=== PATIENT | female | born 1945 | race Caucasian/White ===

== ENCOUNTER 2021-06-27 09:24 | Outpatient (CLI) | payer MEDICARE, OTHER, SELFPAY ==
[2021-06-27 09:34] VITALS: BMI 19.8
[2021-06-27 09:55] VITALS: BP 143/80; PULSE 89; RESP 18; TEMP 36.7; O2SAT 99
[2021-06-27 10:25] VITALS: BP 152/75; PULSE 66; RESP 16; TEMP 36.7; O2SAT 99
[2021-06-27 11:24] VITALS: BP 149/78; PULSE 67; RESP 17; TEMP 36.6; O2SAT 97
== END 2021-06-27 09:25 | disposition home or self-care (01) ==
LOC: OPS 09:32
PROVIDERS: PCP Family Medicine; Visit Provider Family Medicine
DX: U07.1 COVID-19 (principal)
CPT/HCPCS: 96365

== ENCOUNTER → 2021-08-21 08:57 | Outpatient (BNVA) | payer MEDICARE, OTHER, SELFPAY | PROVIDERS: PCP Family Medicine; Visit Provider Nurse Practitioner Family | DX: I73.9 Peripheral vascular disease, unspecified (principal); I10 Essential (primary) hypertension; E78.5 Hyperlipidemia, unspecified; I65.29 Occlusion and stenosis of unspecified carotid artery | CPT/HCPCS: 99214 ==

== ENCOUNTER 2021-08-22 08:16 | Outpatient (CLI) | payer MEDICARE, OTHER, SELFPAY ==
--- NOTE | 2021-08-22 08:31 | USCV_ITS ---
Lucinda Aguila Age: 76 Gender: F : 1945 Exam Date: 08/22/2021 08:42 Ordering Phys: Phillip Zeng MD Technologist: Exam Location: [facility] [place] Indication: aaa HISTORY: Diameter (cm) AP x Transverse x Length Velocity (cm/s) Waveform Prox Aorta: 2.08 x 2.18 x 61.40 Biphasic Mid Aorta: 1.81 x 2.01 x 55.50 Biphasic Distal Aorta: 3.22 x 3.34 x 53.00 Biphasic Right Iliac Prox: 1.42 x 1.70 x 43.80 Biphasic Left Iliac Prox: 1.38 x 1.37 x 36.20 Biphasic Stent Prox Landing x x Aneurysmal Sac Max x x Lt Lat Sac Dim Rt Lat Sac Dim Stent Dist Landing x x Right Iliac Stent x x Left Iliac Stent x x Right Renal Art Left Renal Art FINDINGS: aaa CONCLUSIONS Slightly aneurysmal distal Abdominal aorta measuring 3.2 x 3.3cm. This is slightly more prominent compared to 2019. Moderate atheromatous disease. Normal common iliac arteries Kang Reveles MD (Electronically Signed) Final Date: 22 August 2021 11:33 S
== END 2021-08-22 08:17 | disposition home or self-care (01) ==
LOC: RAD 08:19
PROVIDERS: PCP Family Medicine; Visit Provider Family Medicine
DX: I71.4 Abdominal aortic aneurysm, without rupture (principal)
CPT/HCPCS: 93978

== ENCOUNTER → 2021-10-17 09:16 | Outpatient (BNVA) | payer MEDICARE, OTHER, SELFPAY | PROVIDERS: PCP Family Medicine; Visit Provider Nurse Practitioner Family | DX: R41.0 Disorientation, unspecified (principal); Z91.81 History of falling | CPT/HCPCS: 81000; 87086 ==

== ENCOUNTER → 2021-10-19 08:44 | Outpatient (BNVA) | payer MEDICARE, OTHER, SELFPAY | PROVIDERS: PCP Family Medicine; Visit Provider Internal Medicine Cardiovascular Disease | DX: I65.29 Occlusion and stenosis of unspecified carotid artery (principal); I10 Essential (primary) hypertension; I73.9 Peripheral vascular disease, unspecified; Z95.0 Presence of cardiac pacemaker; F17.210 Nicotine dependence, cigarettes, uncomplicated | CPT/HCPCS: 99214 ==

== ENCOUNTER 2021-11-23 09:57 | Outpatient (CLI) | payer MEDICARE, OTHER, SELFPAY ==
--- NOTE | 2021-11-23 10:09 | USCV_ITS ---
Lucinda Aguila Age: 76 Gender: F : 1945 Exam Date: 11/23/2021 10:15 Ordering Phys: Phillip Zeng MD Technologist: ROCIO [place]am Location[place] [facility] [place] [facility] [place]ication: syncope Risk Factors: Previous Vascular Surgery: Right Brachial BP: / Left Brachial BP: / Right Left Velocity (cm/s) Spectral Plaque Velocity (cm/s) Spectral Plaque Syst/Diast Broadening Syst/Diast Broadening 62.90/ 14.00 Prox CCA 61.80 / 15.60 48.20/ 11.70 Mid CCA 55.10 / 13.40 69.10/ 21.00 Distal CCA 76.70 / 14.90 113.10/34.20 Prox ICA 79.60 / 22.40 59.60/ 17.60 Mid ICA 61.40 / 24.10 45.10/ 19.00 Distal ICA 52.50 / 18.50 140.70 ECA 112.30 1.64 ICA/CCA 1.04 Antegrade Vertebral Antegrade 26.30/ 7.90 cm/s 41.00/ 16.20 cm/s Tri Subclavian Tri 194.3 0 FINDINGS Comparison:. 10/07/18. No significant elevation of systolic or diastolic velocities. Diffuse bilateral scattered calcified plaque and intimal thickening throughout the common carotid arteries and extending through the bifurcation. Progression of intimal thickening since the prior exam. Antegrade vertebral arteries. CONCLUSIONS Bilateral ICA stenosis less than 50%. Mild progression of diffuse intimal thickening and plaque since the prior exam. Dr. Nithya Hussein DO (Electronically Signed) Final Date: 23 November 2021 11:33 S
== END 2021-11-23 09:58 | disposition home or self-care (01) ==
PROVIDERS: PCP Family Medicine; Visit Provider Family Medicine
DX: I65.23 Occlusion and stenosis of bilateral carotid arteries (principal); R55 Syncope and collapse
CPT/HCPCS: 93880

== ENCOUNTER 2021-12-13 08:33 | Outpatient (CLI) | payer MEDICARE, OTHER, SELFPAY ==
--- NOTE | 2021-12-13 08:30 | CT_ITS ---
WS: [id number] CTA NECK TECHNIQUE: Contrast enhanced CTA of the neck with coronal and sagittal reformatted images and maximum intensity projection (MIP) images. NASCET criteria utilized. CLINICAL INFORMATION: Carotid stenosis/aneurysm COMPARISON: CTA 9 25,019 DLP: 352.[address] scans at [facility] use at least one of these dose optimization techniques: automated e xposure control; mA and/or kV adjustment per patient size (includes targeted exams where dose is matc hed to clinical indication); or iterative reconstruction. 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 Dedicated CTA head not performed today. This can be followed up with CTA of head 12 months. RIGHT: RIGHT common carotid artery is patent. Mild stenosis RIGHT proximal ICA with less than 50% michael nosis. ICA is patent to the skull base. LEFT: LEFT common carotid artery is patent. Mild atheromatous plaque LEFT carotid bulb extending into the ICA. No significant LEFT ICA stenosis. LEFT ICA is patent to the skull base. LEFT dominant vertebral artery. Smaller but patent RIGHT vertebral artery. Proximal basilar artery is patent. Patent RIGHT posterior communicating artery. Intracranial contents are only partially visual ized on this CTA neck. Paranasal sinuses and mastoid air cells well aerated. Noncalcified pulmonary nodule LEFT upper lobe a nteriorly measuring 7 mm. Advanced ulcerated atheromatous disease involving the aortic arch and great vessel origins. Moderate stenosis of the proximal RIGHT subclavian artery. Mild stenosis LEFT proxim al subclavian artery. Small bilateral thyroid nodules. Chronic lacunar infarct RIGHT cerebellum. CT/CT angio neck [id number] IMPRESSION: 1. Less than 50% ICA stenosis bilaterally. 2. Advanced atheromatous disease with ulceration involving the aortic arch and great vessel origins. Mild stenosis at the LEFT subclavian artery origin. Mode rate stenosis of the RIGHT subclavian artery origin. Atheromatous disease is pr ogressed slightly compared to 2019. 3. LEFT dominant vertebral artery. Both vertebral arteries are patent. 4. Noncalcified pulmonary nodule LEFT upper lobe anteriorly measuring 7 mm Gregory ears stable since 2019 5. 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 This can be followed up with CTA head 12 months.
[2021-12-13 08:59] LABS: Blood Urea Nitrogen 12 mg/dL (8-23)
[2021-12-13] MEDS: iodixanol 320 mg/mL 100mL Btl IV (09:03)
== END 2021-12-13 08:34 | disposition home or self-care (01) ==
PROVIDERS: PCP Family Medicine; Visit Provider Internal Medicine Cardiovascular Disease
DX: I65.23 Occlusion and stenosis of bilateral carotid arteries (principal); Z01.812 Encounter for preprocedural laboratory examination; R91.1 Solitary pulmonary nodule; I70.8 Atherosclerosis of other arteries
CPT/HCPCS: 70498; 82565; 84520

== ENCOUNTER → 2022-03-15 09:30 | Outpatient (BNVA) | payer MEDICARE, OTHER, SELFPAY | PROVIDERS: PCP Family Medicine; Visit Provider Internal Medicine Cardiovascular Disease | DX: I10 Essential (primary) hypertension (principal); I65.29 Occlusion and stenosis of unspecified carotid artery; I73.9 Peripheral vascular disease, unspecified; Z95.0 Presence of cardiac pacemaker; F17.210 Nicotine dependence, cigarettes, uncomplicated | CPT/HCPCS: 93280; 99214 ==

== ENCOUNTER → 2022-05-23 13:26 | Outpatient (BNVA) | payer MEDICARE, OTHER, SELFPAY | PROVIDERS: PCP Family Medicine; Visit Provider Family Medicine | DX: I10 Essential (primary) hypertension (principal); J44.9 Chronic obstructive pulmonary disease, unspecified; F32.A Depression, unspecified; E78.5 Hyperlipidemia, unspecified; I73.9 Peripheral vascular disease, unspecified; I27.20 Pulmonary hypertension, unspecified | CPT/HCPCS: 80053; 85025 ==

== ENCOUNTER 2022-10-01 14:06 | Outpatient (CLI) | payer MEDICARE, OTHER, SELFPAY ==
--- NOTE | 2022-10-01 14:30 | CT_ITS ---
WS: [id number] CTA HEAD AND NECK TECHNIQUE: Contrast enhanced CTA of the head and neck with coronal and sagittal reformatted images an d maximum intensity projection (MIP) images. NASCET criteria utilized. CLINICAL INFORMATION: dizziness with looking up COMPARISON: CTA December 13, 2021 DLP: 476.[address] scans at [facility] use at least one of these dose optimization techniques: automated e xposure control; mA and/or kV adjustment per patient size (includes targeted exams where dose is matc hed to clinical indication); or iterative reconstruction. FINDINGS: No evidence of intracranial hemorrhage or mass effect. Ventricular system and basal cistern s are patent. Chronic lacunar infarcts in the periventricular white matter and marvin radiata. Tiny c hronic lacunar infarcts in the RIGHT cerebellum. Vascular calcification. No extra-axial fluid collect ions. Mastoid air cells are well aerated. Paranasal sinuses are well aerated. RIGHT: RIGHT common carotid artery is patent. Less than 50% RIGHT ICA stenosis. ICA is patent to the skull base. LEFT: LEFT common carotid artery is patent. Mild atheromatous plaque LEFT carotid bulb extending into the ICA. No significant LEFT ICA stenosis. LEFT ICA is patent to the skull base. INTRACRANIAL CTA: Tiny RIGHT MCA trifurcation aneurysm measuring approximately 2.5 mm appears stable. Mild intracranial atheromatous disease. LEFT dominant vertebral artery. Smaller but patent RIGHT vertebral artery. Proximal basilar artery is patent. Patent RIGHT posterior communicating artery. Advanced ulcerated atheromatous plaque involving the aortic arch and great vessel origins. Moderate s tenosis of the proximal RIGHT subclavian artery. Mild stenosis LEFT proximal subclavian artery. Small bilateral thyroid nodules. CT/CT angio headneck* [id number] IMPRESSION: 1. Less than 50% ICA stenosis bilaterally. 2. 2.5 mm RIGHT MCA trifurcation aneurysm is unchanged. 3. Advanced atheromatous disease with ulceration involving the aortic arch and great vessel origins unchanged. 4. Mild stenosis at the LEFT subclavian artery origin. Moderate stenosis of th e RIGHT subclavian artery origin. 5. LEFT dominant vertebral artery. Both vertebral arteries are patent.
[2022-10-01 14:42] LABS: Blood Urea Nitrogen 7 mg/dL (8-23)
[2022-10-01] MEDS: iohexol 350 mg/mL 500 mL Btl (per mL) IV (14:58)
== END 2022-10-01 14:07 | disposition home or self-care (01) ==
LOC: RAD 14:08
PROVIDERS: PCP Family Medicine; Visit Provider Nurse Practitioner Family
DX: I67.1 Cerebral aneurysm, nonruptured (principal); I77.1 Stricture of artery
CPT/HCPCS: 70496; 70498; 82565; 84520; 99214; Q9967

== ENCOUNTER 2022-10-27 10:17 | Emergency (ER) | payer MEDICARE, OTHER, SELFPAY ==
[2022-10-27] VITALS (8 sets, daily range): BP systolic 101–167; BP diastolic 55–93; PULSE 65–97; RESP 17–25; O2SAT 93–98; BMI 18.4
--- NOTE | 2022-10-27 10:29 | XRR_ITS ---
PROCEDURE INFORMATION: Exam: XR Chest Exam date and time: 10/27/2022 10:36 AM Age: 77 years old Clinical indication: Dyspnea; Additional info: Dyspnea/cough TECHNIQUE: Imaging protocol: Radiologic exam of the chest. Views: 1 view. COMPARISON: CT chest abdomen w con* 03/01/2019 9:46 AM FINDINGS: Tubes, catheters and devices: There is a dual-lead AICD with leads positioned in the right atrium and right ventricle. Lungs: There is calcified granuloma in the left lower lobe. There is no consolidation. Pleural spaces: There is no pleural effusion or pneumothorax. Heart/Mediastinum: Cardiomediastinal contours are unremarkable. Bones/joints: Upper lumbar scoliosis is partially imaged. Soft tissues: There is a small posterior left diaphragmatic hernia visible along the left hemidiaphragm which contains fat and the upper pole the left kidney (based on CT 03/01/2019). XR/XR chest 1V portable [id number] IMPRESSION: 1. No acute findings. 2. Incidental findings above.
--- NOTE | 2022-10-27 10:29 | CTR_ITS ---
PROCEDURE INFORMATION: Exam: CT Head Without Contrast Exam date and time: 10/27/2022 10:49 AM Age: 77 years old Clinical indication: Syncope and collapse; Additional info: Syncope/hx intracranial anuerysm TECHNIQUE: Imaging protocol: Computed tomography of the head without contrast. Radiation optimization: All CT scans at this facility use at least one of these dose optimization techniques: automated exposure control; mA and/or kV adjustment per patient size (includes targeted exams where dose is matched to clinical indication); or iterative reconstruction. REPORTING DATA: Count of CT and Cardiac NM exams in prior 12 months: This patient has received 2 known CTs and 0 known cardiac nuclear medicine studies in the 12 months prior to the current study. COMPARISON: CT angio headneck* [id number] 10/01/2022 2:46 PM RADIATION DOSE METRICS: Total DLP (mGy-cm): 982.74 FINDINGS: Brain: There is diffuse cerebral atrophy and chronic microvascular white matter disease. There are focal hypodensities in the bilateral basal ganglia and left thalamus consistent with chronic lacunar infarcts. There is no acute intracranial hemorrhage. Cerebral ventricles: There is no significant ventricular dilation. The basal cisterns are unremarkable. Paranasal sinuses: The paranasal sinuses are clear. Mastoid air cells: The mastoid air cells are clear. Bones/joints: The calvarium is intact. Soft tissues: The visible extracranial soft tissues are unremarkable. CT/CT head wo con* [id number] IMPRESSION: 1. No acute intracranial abnormality. 2. Chronic lacunar infarcts in the bilateral basal ganglia and left thalamus.
--- NOTE | 2022-10-27 10:29 | ECG_ITS ---
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 Measurements Intervals [place] Rate: 73 P: 86 VT: 133 QRS: -21 QRSD: 101 T: 70 QT: 390 QTc: 432 Interpretive Statements SINUS RHYTHM SEPTAL MYOCARDIAL INFARCTION , PROBABLY OLD [40+ ms Q WAVE IN V1/V2] Compared to ECG 10/02/2018 14:05:17 Atrial-paced complex(es) or rhythm no longer present Myocardial infarct finding still present Electronically Signed On 10-27-2022 19:26:04 CDT by Christopher Garrett M.D. [id number]
--- NOTE | 2022-10-27 10:40 | W.ED.DIZZY ---
HPI - Dizziness General: Chief Complaint: Dizziness Stated Complaint: passed out/ Dizzy/ confusion Time Seen by Provider: 10/27/22 10:23 Source: patient Mode of arrival: ambulatory History of Present Illness: HPI Narrative: 77-year-old female presents emergency room stating she had a syncopal episode. She was taking some pictures she felt dizzy lightheaded. She has had a history of passing out in the past. When she arrived here she denies any symptoms she is actually quite upset that here she did not want to call only came to the insistence of her daughters. She denies chest pain or shortness of breath. No fever sweats or chills. She did not strike her head she does recall having a syncopal episode states that this similar to the past. MD elicited complaint: dizziness and lightheadedness Onset (ago): minute(s) Timing: sudden onset Description: lightheadedness and off-balance Exacerbating factors: nothing Relieving factors: nothing Associated symptoms: Denies abnormal vaginal bleeding, change in hearing, chest pain, chills, cough, diaphoresis, ear discharge, ear pressure, fevers/chills, headache(s), malaise, nausea, nasal congestion, palpitations, rash, short of breath, syncope, tinnitus, vomiting or weakness Associated neuro symptoms: Deny confusion, difficulty speaking, dysphagia, diplopia, extremity weakness, facial numbness, facial weakness, gait changes, numbness in extremities or visual changes Review of Systems Const: Denies: fever(s), chills, fatigue, malaise or diaphoresis ENMT: Denies: ear discharge, change in hearing, tinnitus or nasal congestion Card: Denies: chest pain, palpitations or syncope Resp: Denies: dyspnea, productive cough or non-productive cough GI: Denies: abdominal pain, nausea, vomiting or dysphagia : Denies: flank pain, difficulty voiding, dysuria, urinary frequency or urinary urgency Skin/Breast: Denies: rash or pruritus Neuro: Denies: headache(s), numbness in extremities or confusion PFS ED PFSH: Medical History Carotid stenosis COPD (chronic obstructive pulmonary disease) Depression Dyslipidemia HTN (hypertension) Pulmonary HTN PVD (peripheral vascular disease) SSS (sick sinus syndrome) Stenosis of right subclavian artery moderate Tobacco abuse Surgical History S/P carotid endarterectomy Status post placement of cardiac pacemaker Family History Father CAD (coronary artery disease) Brother CAD (coronary artery disease) Mother Cancer Social History Smoking and tobacco status: never smoked Alcohol intake: never Substance/Drug Use: never Marital status: Physical Exam Const: GENERAL APPEARANCE: cooperative and comfortable ORIENTATION/CONSCIOUSNESS: Yes awake, Yes oriented to person, Yes oriented to place and Yes oriented to time HENMT: COMMON NORMALS: normocephalic, atraumatic and hearing grossly normal bilaterally HEAD & SCALP: normocephalic and atraumatic Resp: COMMON NORMALS: normal respiratory effort, No retractions, No use of accessory muscles and clear to auscultation bilaterally AUSCULTATION: clear to auscultation bilaterally Cardio: COMMON NORMALS: regular rate, regular rhythm and No murmurs present (Cardio) RATE: regular rate RHYTHM: regular rhythm GI: COMMON NORMALS: Soft to palpation and No hepatosplenomegaly present AUSCULTATION: Yes normoactive bowel sounds PALPATION: Yes Soft to palpation, No Tenderness to palpation present (GI), No Guarding due to palpation present (GI) and Yes No hepatosplenomegaly present Extremity: COMMON NORMALS: normal to inspection, capillary refill normal, no clubbing, cyanosis or edema, no calf tenderness and no pedal edema Neuro: SENSORIUM/ORIENTATION: Yes oriented to person, Yes oriented to place and Yes oriented to time Skin: COMMON NORMALS: no rashes or lesions noted GENERAL SKIN EXAM: no rashes or lesions noted Course Vital Signs: Vital signs: Vital Signs Pulse Rate 65 10/27/22 14:54 Respiratory Rate 24 H 10/27/22 13:50 Blood Pressure 156/93 10/27/22 14:54 Pulse Oximetry 98 10/27/22 14:54 Oxygen Delivery Me thod Room Air 10/27/22 10:26 MDM - Dizziness Medical Decision Making EKG and cardiac enzymes unremarkable cardiac pacemaker interrogated no significant events. Patient does have an incidental UTI is a large number of red blood cells so CT of the urinary tract system was done which was unremarkable. We will discharge patient home have her follow-up with her primary care doctor we will set up for an outpatient echocardiogram. Discussed with the patient the results that she was quite anxious to leave. Had considered observation however she has no interest in staying. She should follow-up with her primary care doctor after completing the course of antibiotics to recheck her urine if it is persistent blood she may need urologic work-up. Additionally follow-up after the echocardiogram is completed. Medical Records I reviewed the patient's medical records. Lab Data I reviewed the patient's lab results. 10/27/22 11:25 10/27/22 11:25 Radiology Impressions Chest X-Ray 10/27/22 10:29 IMPRESSION: 1. No acute findings. 2. Incidental findings above. Head CT 10/27/22 10:29 IMPRESSION: 1. No acute intracranial abnormality. 2. Chronic lacunar infarcts in the bilateral basal ganglia and left thalamus. Abdomen/Pelvis CT 10/27/22 11:56 IMPRESSION: 1. No obstructive uropathy. No stones. Consider nonemergent CT urography for more complete assessment of hematuria. 2. 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 3. Cholelithiasis with distended gallbladder lumen and no other sign of acute cholecystitis. 4. 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 Follow-up imaging in 1 year is recommended. 5. Incidental findings above. COMMENTS: Consistent with the [employer]'s Incidental Findings Committee white paper (J Am Ema Radiol 2018): Any incidental renal lesion less than 1 cm or classified as too small to characterize, or any incidental cystic renal lesion characterized as simple-appearing, is likely benign. No follow-up imaging is recommended for these lesions per consensus recommendations based on imaging criteria. Laboratory Results WBC 11.0 10^3/uL (4.0-10.0) H 10/27/22 11:25 RBC 5.21 10^6/uL (4.1-5.3) 10/27/22 11:25 Hgb 15.6 g/dL (11.5-15.3) H 10/27/22 11:25 Hct 47.7 % (37.0-47.0) H 10/27/22 11:25 MCV 91.6 fl (81-99) 10/27/22 11:25 MCH 29.9 pg (28.0-34.0) 10/27/22 11:25 MCHC 32.7 g/dL (30.0-36.0) 10/27/22 11:25 RDW 12.2 % (12.1-15.1) 10/27/22 11:25 Plt Count 277 10^3/cmm (130-400) 10/27/22 11:25 MPV 9.0 fL (7.4-10.4) 10/27/22 11:25 Neut % (Auto) 79.7 % 10/27/22 11:25 Lymph % (Auto) 11.7 % 10/27/22 11:25 [place] % (Auto) 5.4 % 10/27/22 11:25 Eos % (Auto) 2.0 % 10/27/22 11:25 Baso % (Auto) 0.6 % 10/27/22 11:25 Neut # (Auto) 8.72 10^3/uL (1.8-7.7) H 10/27/22 11:25 Lymph # (Auto) 1.3 10^3/uL (0.8-4.8) 10/27/22 11:25 [place] # (Auto) 0.6 10^3/uL (0.2-0.9) 10/27/22 11:25 Eos # (Auto) 0.2 10^3/uL (0.0-0.8) 10/27/22 11:25 Baso # (Auto) 0.1 10^3/uL (0.0-0.1) 10/27/22 11:25 Nucleated RBC % (auto) 0 % 10/27/22 11:25 Nucleated RBCs # 0.0 /100WBC 10/27/22 11:25 Sodium 135 mmol/L (136-145) L 10/27/22 11:25 Potassium 4.4 mmol/L (3.5-5.1) 10/27/22 11:25 Chloride 98 mmol/L (98-107) 10/27/22 11:25 Carbon Dioxide 27 mmol/L (22-29) 10/27/22 11:25 Anion Gap 14.4 (5-19) 10/27/22 11:25 BUN 9 mg/dL (8-23) 10/27/22 11:25 Creatinine 1.0 mg/dL (0.5-0.9) H 10/27/22 11:25 GFR Calculation Not Reportable 10/27/22 11:25 Glucose 114 mg/dL (65-115) 10/27/22 11:25 Calculated Osmolality 280 mOsm/kg (285-295) L 10/27/22 11:25 Calcium 9.4 mg/dL (8.5-10.5) 10/27/22 11:25 Total Bilirubin 0.4 mg/dL (0.15-1.2) 10/27/22 11:25 AST 15 U/L (0-32) 10/27/22 11:25 ALT 7 U/L (0-33) 10/27/22 11:25 Alkaline Phosphatase 82 U/L (35-105) 10/27/22 11:25 Troponin T Baseline 11 ng/L (0-10) H 10/27/22 11:25 Troponin T 120 Minute 9.48 ng/L (0-10) 10/27/22 13:44 Delta Troponin T -1.52 ABS# (0-10) L 10/27/22 13:44 Total Protein 7.2 g/dL (6.6-8.7) 10/27/22 11:25 Albumin 4.1 g/dL (3.5-5.2) 10/27/22 11:25 Globulin 3.1 g/dL (1.3-4.6) 10/27/22 11:25 Urine Color [place] (Yellow) 10/27/22 11:17 Urine Appearance Cloudy (CLEAR) A 10/27/22 11:17 Urine pH 6 (5-7) 10/27/22 11:17 Ur Specific [place] 1.020 (1.005-1.030) 10/27/22 11:17 Urine Protein 1+ (Negative) H 10/27/22 11:17 Urine Glucose (UA) Norm (Normal) 10/27/22 11:17 Urine Ketones 1+ (Negative) H 10/27/22 11:17 Urine Blood 3+ (Negative) H 10/27/22 11:17 Urine Nitrate Negative (Negative) 10/27/22 11:17 Urine Bilirubin 1+ (Negative) H 10/27/22 11:17 Urine Urobilinogen 1 mg/dL (Negative) H 10/27/22 11:17 Ur Leukocyte Esterase 1+ (Negative) H 10/27/22 11:17 Urine RBC Too numerous to cnt /hpf (0-2) H 10/27/22 11:17 Urine WBC 10-15 /hpf (0-5) H 10/27/22 11:17 Ur Squamous Epith Cells 0-4 /hpf (0-5) H 10/27/22 11:17 Amorphous Sediment Not Reportable 10/27/22 11:17 Urine Bacteria 1+ /hpf (NONE) H 10/27/22 11:17 Discharge Plan Discharge Patient Disposition: Home Clinical Impression: Syncope, Cystitis Condition: Stable Prescriptions: New Macrobid 100 mg capsule 100 mg PO BID 7 Days Qty: 14 0RF Rx Instructions: must administer with a meal/food No Action naproxen sodium [Aleve] 220 mg tablet 220 mg PO BID PRN (Reason: Pain) escitalopram oxalate [Lexapro] 20 mg tablet 20 mg PO DAILY Qty: 30 12RF albuterol sulfate [ProAir HFA] 90 mcg/actuation HFA aerosol inhaler 2 puff inhalation Q4H PRN (Reason: Shortness Of Breath) alprazolam 0.25 mg tablet 0.25 mg PO BID PRN (Reason: anxiety) Qty: 60 3RF amlodipine 5 mg tablet 5 mg PO DAILY trazodone 100 mg tablet 100 mg PO BEDTIME Discharge Orders: Discharge ED (Routine); Ordered 10/27/22 Ordered By: Augusto Rudd Referrals: Phillip Zeng MD [Primary Care Provider] - Discharge Diet: Usual diet Discharge Activity: Resume usual activity Patient Instructions: Opioid Safety, Pain Management Activity Restrictions/Additional Instructions: You are seen today after syncopal episode. Your cardiac enzymes normal he did have a bladder infection for which you were given a prescription for oral antibiotics. We will set you up for an outpatient echocardiogram for worsening change symptoms return to the emergency room Coding Level of Care Code ED Critical Care Registered Nurse for Bruce Montaño
[2022-10-27 11:35] LABS: Basophils # 0.1 10^3/uL (0.0-0.1); Basophils % 0.6 %; Eosinophils # 0.2 10^3/uL (0.0-0.8); Hematocrit 47.7 % (37.0-47.0); Hemoglobin 15.6 g/dL (11.5-15.3); Lymphocytes # 1.3 10^3/uL (0.8-4.8); Lymphocytes % 11.7 %; Mean Corpuscular HGB Conc 32.7 g/dL (30.0-36.0); Mean Corpuscular Hemoglobin 29.9 pg (28.0-34.0); Mean Corpuscular Volume 91.6 fl (81-99); Monocytes # 0.6 10^3/uL (0.2-0.9); Monocytes % 5.4 %; Neutrophils # 8.72 10^3/uL (1.8-7.7); Neutrophils % 79.7 %; Nucleated Red Blood Cells % 0 %; Platelet Count 277 10^3/cmm (130-400); Red Blood Count 5.21 10^6/uL (4.1-5.3); Red Cell Distribution Width 12.2 % (12.1-15.1)
[2022-10-27 11:45] LABS: Add Urine Culture? Yes; Add Urine Microscopic? YES; Bacteria Urine 1+ /hpf; Bilirubin Urine 1+ (Negative); Blood Urine 3+ (Negative); Glucose Urine UA Norm (Normal); Ketones Urine 1+ (Negative); Leukocyte Esterase Urine 1+ (Negative); Nitrate Urine Negative (Negative); Protein Urine 1+ (Negative); RBC Urine TOO NUMEROUS TO CNT /hpf (0-2); Squamous Epithelial Cell Urine 0-4 /hpf (0-5); Urine Appearance Cloudy (CLEAR); Urine Color Amber (Yellow); Urobilinogen Urine 1 mg/dL (Negative); pH Urine 6 (5-7)
[2022-10-27 11:55] LABS: Troponin(5th) Baseline 11 ng/L (0-10)
--- NOTE | 2022-10-27 11:56 | CTR_ITS ---
PROCEDURE INFORMATION: Exam: CT Abdomen And Pelvis Without Contrast Exam date and time: 10/27/2022 12:13 PM Age: 77 years old Clinical indication: Other: Hematuria; Additional info: Hematuria, flank pain TECHNIQUE: Imaging protocol: Computed tomography of the abdomen and pelvis without contrast. Radiation optimization: All CT scans at this facility use at least one of these dose optimization techniques: automated exposure control; mA and/or kV adjustment per patient size (includes targeted exams where dose is matched to clinical indication); or iterative reconstruction. REPORTING DATA: Count of CT and Cardiac NM exams in prior 12 months: This patient has received 2 known CTs and 0 known cardiac nuclear medicine studies in the 12 months prior to the current study. COMPARISON: CT chest abdomen w con* 03/01/2019 9:46 AM RADIATION DOSE METRICS: Total DLP (mGy-cm): 274.38 FINDINGS: Lungs: There is subsegmental atelectasis in the lung bases. There is a benign calcified granuloma in the left lower lobe. Diaphragm: There is a small sliding-type hiatal hernia. Liver: The liver is normal. Gallbladder and bile ducts: Cholelithiasis is present. There is no sign of cholecystitis. No gallbladder wall thickening or edema. The lumen is distended. There is ectasia of the common bile duct and central intrahepatic ducts. Pancreas: The pancreas is unremarkable. Spleen: Splenic size is normal. There are scattered calcifications consistent with healed granulomas. Adrenal glands: There is hypertrophy of the left adrenal gland. Kidneys and ureters: There are simple cysts in the left kidney. There is no hydronephrosis or stones. The right kidney and ureter are unremarkable. There are bilateral posterior diaphragmatic hernias containing mesenteric fat and upper poles of both kidneys. Stomach and bowel: The stomach is decompressed, preventing meaningful evaluation of wall thickness. The small bowel is nondilated. There is moderate sigmoid colonic diverticulosis without evidence of diverticulitis. Appendix: The appendix is normal. Intraperitoneal space: There is no free air or significant intraperitoneal free fluid. Vasculature: There is severe aortic atherosclerotic disease. There is a saccular aneurysm of the abdominal aorta measuring 4.0 x 3.5 cm located below the level of the renal arteries. There is a stent in the right common iliac artery. There is probable occlusion of the right external iliac artery. Lymph nodes: There is no lymphadenopathy in the retroperitoneum, mesentery, pelvis or inguinal regions. Urinary bladder: The urinary bladder is unremarkable. Reproductive: The uterus is unremarkable. There is no adnexal mass or large cyst. Bones/joints: Mild broad-based convex left lumbar scoliosis. There is moderate degenerative disease in the lumbar spine. The hips are unremarkable. The pelvis is intact. There is fusion at the right SI joint. Soft tissues: The abdominal wall is intact. CT/CT kidney stone [id number] IMPRESSION: 1. No obstructive uropathy. No stones. Consider nonemergent CT urography for more complete assessment of hematuria. 2. 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 3. Cholelithiasis with distended gallbladder lumen and no other sign of acute cholecystitis. 4. 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 Follow-up imaging in 1 year is recommended. 5. Incidental findings above. COMMENTS: Consistent with the [employer]'s Incidental Findings Committee white paper (J Am Ema Radiol 2018): Any incidental renal lesion less than 1 cm or classified as too small to characterize, or any incidental cystic renal lesion characterized as simple-appearing, is likely benign. No follow-up imaging is recommended for these lesions per consensus recommendations based on imaging criteria.
[2022-10-27 11:58] LABS: Alanine Aminotransferase 7 U/L (0-33); Albumin Level 4.1 g/dL (3.5-5.2); Alkaline Phosphatase 82 U/L (35-105); Anion Gap 14.4 (5-19); Aspartate Amino Transferase 15 U/L (0-32); Blood Urea Nitrogen 9 mg/dL (8-23); Calcium 9.4 mg/dL (8.5-10.5); Carbon Dioxide 27 mmol/L (22-29); Chloride 98 mmol/L (98-107); Globulin 3.1 g/dL (1.3-4.6); Glucose 114 mg/dL (65-115); Osmolality Calculated 280 mOsm/kg (285-295); Potassium 4.4 mmol/L (3.5-5.1); Sodium 135 mmol/L (136-145); Total Bilirubin 0.4 mg/dL (0.15-1.2); Total Protein 7.2 g/dL (6.6-8.7)
--- NOTE | 2022-10-27 12:36 | ECG_ITS ---
[facility] Test Date: 2022-10-27 Pat Name: Lucinda Aguila Department: Room: Gender: Female Systems Mgr: : 1945 Requested By: Augusto Nelson Order Number: [id number] Reading MD: Christopher Garrett M.D. Measurements Intervals [place] Rate: 65 P: 83 MO: 148 QRS: -14 QRSD: 107 T: 70 QT: 427 QTc: 447 Interpretive Statements SINUS RHYTHM SEPTAL MYOCARDIAL INFARCTION , PROBABLY OLD [40+ ms Q WAVE IN V1/V2] Compared to ECG 10/02/2018 14:05:17 Atrial-paced complex(es) or rhythm no longer present Myocardial infarct finding still present Electronically Signed On 10-27-2022 12:37:15 CDT by Christopher Garrett M.D. [id number]
[2022-10-27 14:07] LABS: Troponin 5 2HR 9.48 ng/L (0-10)
[2022-10-27 14:12] LABS: Troponin 5 2HR Delta -1.52 ABS# (0-10)
--- NOTE | 2022-10-28 14:16 | PC.SOCIAL ---
Addendum entered by Aracelis Gregg 01/16/23 13:55: Patient had an echo scheduled - patient did attend appointment Original Note: Referral for echocardiogram faxed to centralized scheduling at this time with request to send results to Dr. Zeng.
== END 2022-10-27 14:55 | disposition home or self-care (01) ==
PROVIDERS: Emergency Provider Family Medicine; PCP Family Medicine
DX: R55 Syncope and collapse (principal); N30.90 Cystitis, unspecified without hematuria; K80.20 Calculus of gallbladder without cholecystitis without obstruction; J44.9 Chronic obstructive pulmonary disease, unspecified; I10 Essential (primary) hypertension; E78.5 Hyperlipidemia, unspecified; Z95.0 Presence of cardiac pacemaker
CPT/HCPCS: 70450; 71045; 74176; 80053; 81001; 84484; 85025; 87086; 93005; 99285

== ENCOUNTER 2022-12-05 09:04 | Outpatient (CLI) | payer MEDICARE, OTHER, SELFPAY ==
--- NOTE | 2022-12-05 09:15 | USCV_ITS ---
Lucinda Aguila Age: 77 Gender: F : 1945 Exam Date: 12/05/2022 09:31 Ordering Phys: Augusto Rudd DO Technologist: Rodger White Exam Location: [facility] [place] Indication: syncope BP: 140 / 68 HR: 64 Rhythm: Sinus Technical Quality: Adequate MEASUREMENTS (Male / Female) Normal Values 2D ECHO LVOT Diameter 2.0 cm LV Ejection Fraction MOD 2C 71.3 % LV Ejection Fraction 2C AL 70.6 % LA Diameter 3.0 cm LA Width 2.6 cm LA Height 2.7 cm RA Width 2.6 cm RA Height 3.1 cm Aorta at Sinotubular Diameter 2.1 cm IVC Diameter 1.1 cm M-MODE Aortic Annulus Diameter 2.1 cm LA Ao Ratio MM 1.4 MV E Point Septal Separation 0.3 cm DOPPLER AV Peak Velocity 107.0 cm/s LVOT Peak Velocity 105.0 cm/s AV Area Cont Eq vti 3.9 cm squared AV Area Cont Eq pk 3.1 cm squared MV Peak Velocity 89.0 cm/s MV Area PHT 2.0 cm squared Mitral E to A Ratio 0.7 MV E' Velocity 34.0 cm/s Mitral E to MV E' Ratio 9.8 Mitral E to LV E' Lateral Ratio 8.9 Mitral E to LV E' Septal Ratio 11.3 TR Peak Velocity 228.6 cm/s TR Peak Gradient 20.9 mmHg TR Mean Velocity 173.6 cm/s TR Mean Gradient 13.1 mmHg TR Velocity Time Integral 58.5 cm Right Atrial Pressure 3.0 mmHg Pulmonary Artery Systolic Pressu 23.9 mmHg PV Peak Velocity 80.3 cm/s RV Acceleration Time 0.1 s RV Ejection Time 0.3 s RV AcT/ET 0.5 FINDINGS Left Ventricle Left ventricle is normal in size. LV systolic function is normal with EF of 60 to 65%. No regional wall motion normalities are seen. Grade 1 diastolic dysfunction Right Ventricle Normal in size and function. Pacemaker lead is noted Right Atrium Normal in size. Pacemaker lead is noted Left Atrium Normal in size Mitral Valve Grossly normal. Mild mitral regurgitation. Aortic Valve Grossly normal. No significant stenosis or regurgitation. Tricuspid Valve Mild tricuspid regurgitation. Pulmonary artery systolic pressure is normal. Pulmonic Valve Not well visualized Pericardium Normal Aorta Normal in size IVC Appears to be normal CONCLUSIONS LV systolic function is normal with EF of 60 to 65% Grade 1 diastolic dysfunction Mild mitral regurgitation Mild tricuspid regurgitation Compared to prior echocardiogram from 2017, no significant changes are noted. Christopher Garrett MD (Electronically Signed) Final Date: 05 December 2022 17:17 S
== END 2022-12-05 09:05 | disposition home or self-care (01) ==
LOC: RAD 09:05
PROVIDERS: PCP Family Medicine; Visit Provider Family Medicine
DX: I50.30 Unspecified diastolic (congestive) heart failure (principal); I34.0 Nonrheumatic mitral (valve) insufficiency; I07.1 Rheumatic tricuspid insufficiency
CPT/HCPCS: 93306

== ENCOUNTER → 2023-04-01 10:37 | Outpatient (BNVA) | payer MEDICARE, OTHER, SELFPAY | PROVIDERS: PCP Family Medicine; Visit Provider Family Medicine | DX: J44.9 Chronic obstructive pulmonary disease, unspecified (principal); I27.20 Pulmonary hypertension, unspecified; I10 Essential (primary) hypertension; E78.5 Hyperlipidemia, unspecified | CPT/HCPCS: 80053; 85025 ==

== ENCOUNTER → 2023-07-16 12:57 | Outpatient (BNVA) | payer MEDICARE, OTHER, SELFPAY | PROVIDERS: PCP Family Medicine; Visit Provider Nurse Practitioner | DX: S99.921A Unspecified injury of right foot, initial encounter (principal); X58.XXXA Exposure to other specified factors, initial encounter; M19.071 Primary osteoarthritis, right ankle and foot | CPT/HCPCS: 73630 ==

== ENCOUNTER → 2023-07-24 08:46 | Outpatient (BNVA) | payer MEDICARE, OTHER, SELFPAY | PROVIDERS: PCP Family Medicine; Visit Provider Thoracic Surgery (Cardiothoracic Vascular Surgery) | DX: I96 Gangrene, not elsewhere classified (principal); L97.512 Non-pressure chronic ulcer of other part of right foot with fat layer exposed | CPT/HCPCS: 97597; 99213 ==

== ENCOUNTER → 2023-07-31 07:54 | Outpatient (BNVA) | payer MEDICARE, OTHER, SELFPAY | PROVIDERS: PCP Family Medicine; Visit Provider Thoracic Surgery (Cardiothoracic Vascular Surgery) | DX: S90.424D Blister (nonthermal), right lesser toe(s), subsequent encounter (principal); X58.XXXD Exposure to other specified factors, subsequent encounter | CPT/HCPCS: 97597 ==

== ENCOUNTER → 2023-08-05 08:45 | Outpatient (BNVA) | payer MEDICARE, OTHER, SELFPAY | PROVIDERS: PCP Family Medicine; Visit Provider Thoracic Surgery (Cardiothoracic Vascular Surgery) | DX: Z09 Encounter for follow-up examination after completed treatment for conditions other than malignant neoplasm (principal); Z87.2 Personal history of diseases of the skin and subcutaneous tissue | CPT/HCPCS: 99212; A6212 ==

== ENCOUNTER → 2023-08-07 13:45 | Outpatient (BNVA) | payer MEDICARE, OTHER, SELFPAY | PROVIDERS: PCP Family Medicine; Visit Provider Podiatrist Foot & Ankle Surgery | DX: R09.89 Other specified symptoms and signs involving the circulatory and respiratory systems (principal); M21.611 Bunion of right foot; M25.871 Other specified joint disorders, right ankle and foot; I73.9 Peripheral vascular disease, unspecified | CPT/HCPCS: 99203 ==

== ENCOUNTER → 2023-08-27 10:20 | Outpatient (BNVA) | payer MEDICARE, OTHER, SELFPAY | PROVIDERS: PCP Family Medicine; Visit Provider Family Medicine | DX: R22.2 Localized swelling, mass and lump, trunk (principal); I10 Essential (primary) hypertension; I27.20 Pulmonary hypertension, unspecified; F32.A Depression, unspecified | CPT/HCPCS: 80053; 85025 ==

== ENCOUNTER 2023-08-28 10:18 | Outpatient (CLI) | payer MEDICARE, OTHER, SELFPAY ==
--- NOTE | 2023-08-28 10:15 | USCV_ITS ---
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 Abnormal resting LUACS and TBI on the right side, suggesting moderate peripheral arterial disease. Features suggesting multisegmental disease 2. Slightly diminished resting LUCAS and TBI on the left side suggesting mild peripheral arterial disease Dr Kwame Arias MD [facility] (Electronically Signed) Final Date: 29 August 2023 16:19 S
== END 2023-08-28 10:19 | disposition home or self-care (01) ==
LOC: RAD 10:18
PROVIDERS: PCP Family Medicine; Visit Provider Podiatrist Foot & Ankle Surgery
DX: R09.89 Other specified symptoms and signs involving the circulatory and respiratory systems (principal)
CPT/HCPCS: 93923

== ENCOUNTER → 2023-10-09 11:18 | Outpatient (BNVA) | payer MEDICARE, OTHER, SELFPAY | PROVIDERS: PCP Family Medicine; Visit Provider Podiatrist Foot & Ankle Surgery | DX: I73.9 Peripheral vascular disease, unspecified (principal); R09.89 Other specified symptoms and signs involving the circulatory and respiratory systems; M21.611 Bunion of right foot; M25.871 Other specified joint disorders, right ankle and foot | CPT/HCPCS: 99213 ==

== ENCOUNTER 2023-10-10 12:20 | Outpatient (CLI) | payer MEDICARE, OTHER, SELFPAY ==
--- NOTE | 2023-10-10 12:45 | USR_ITS ---
PROCEDURE INFORMATION: Exam: US Left Non-Vascular Joint or Other Extremity Structure Exam date and time: 10/10/2023 12:44 PM Age: 78 years old Clinical indication: Mass or lump; Other: Left lower back; Additional info: Mass on back, left of lumbar spine, US of soft tissue mass left of lumbar spine TECHNIQUE: Imaging protocol: Left US joint or other nonvascular extremity structure or structures. Real-time ultrasound with image documentation. Limited study. Exam focused on the lower extremity in the region of clinical interest. COMPARISON: CT kidney stone [id number] 10/27/2022 12:13 PM FINDINGS: Soft tissues: Normal subcutaneous fat, musculature and bone is visible. No mass or fluid collection. US/US soft tissue/extremity [id number] IMPRESSION: No pathologic findings.
== END 2023-10-10 12:21 | disposition home or self-care (01) ==
LOC: RAD 12:20
PROVIDERS: PCP Family Medicine; Visit Provider Family Medicine
DX: R22.2 Localized swelling, mass and lump, trunk (principal)
CPT/HCPCS: 76882

== ENCOUNTER 2023-10-29 20:08 | Emergency (ER) | payer MEDICARE, OTHER, SELFPAY ==
[2023-10-29 20:21] VITALS: BP 150/74; PULSE 74; RESP 16; TEMP 36.5; O2SAT 96
--- NOTE | 2023-10-29 20:38 | ED_ITS ---
HPI - Extremity Problem 2 General: Chief complaint: Extremity Problem,Nontraumatic Stated complaint: Feet swelling Time Seen by Provider: 10/29/23 20:38 History of Present Illness: 78-year-old female comes in today for co ncerns of swelling in the right foot. Patient had recently stent placement in bilateral femoral arteries. Patient reports some swelling noticed after stent placement to the right foot. Patient reports minimal discomfort. Patient has strong pulses bilaterally. Patient has been on blood thinner since placement of the stents but does not recall the name. Patient appears nontoxic. Family is at bedside. Review of Systems 2 General: Reports: 10 or more systems reviewed and unremarkable except in HPI and below PFSH ED 2 PFSH: Medical History Stenosis of right subclavian artery moderate Depression COPD (chronic obstructive pulmonary disease) Carotid stenosis Pulmonary HTN SSS (sick sinus syndrome) Tobacco abuse PVD (peripheral vascular disease) HTN (hypertension) Dyslipidemia Surgical History Status post placement of cardiac pacemaker S/P carotid endarterectomy Family History Father CAD (coronary artery disease) Brother CAD (coronary artery disease) Mother Cancer Social History Smoking and tobacco/nicotine status: never used tobacco/nicotine Alcohol intake: never Substance/Drug Use: never Marital status: Physical Exam 2 Const: COMMON NORMALS: alert HENMT: COMMON NORMALS: normocephalic HEAD & SCALP: normocephalic Neck/C-Spine: COMMON NORMALS: full ROM Resp: COMMON NORMALS: normal respiratory effort and clear to auscultation bilaterally AUSCULTATION: clear to auscultation bilaterally Cardio: COMMON NORMALS: regular rate and regular rhythm RATE: regular rate RHYTHM: regular rhythm Back/Pelvis: COMMON NORMALS: thoracic and lumbar spine normal to inspection Extremity: NARRATIVE EXTREMITY EXAM: Swelling at the ankles of the right foot. Strong bilateral pedal pulses. Neuro: SENSORIUM/ORIENTATION: Yes alert Skin: COMMON NORMALS: turgor normal GENERAL SKIN EXAM: turgor normal Course 2 Vital Signs: Vital signs: Vital Signs Temperature 97.7 F 10/29/23 20:21 Pulse Rate 63 10/29/23 22:27 Respiratory Rate 16 10/29/23 22:27 Blood Pressure 151/82 10/29/23 22:27 Pulse Oximetry 98 10/29/23 22:27 Oxygen Delivery Me thod Room Air 10/29/23 20:21 MDM - Extremity (Nontraumatic) Medical Decision Making 78-year-old female comes in today for concerns of swelling to the right lower extremity. Patient in the last 2 weeks had femoral stents placed [facility]. Patient over the last 2 days noticed some increased swelling in the right foot. Patient also had some mild increase in pain. Patient appears nontoxic. Patient reports no chest pain or shortness of breath. Patient has strong pedal pulses. Differential diagnosis includes but not limited to DVT, dependent edema, stasis dermatitis, PVD. Ultrasound lower extremity noted no deep vein thrombosis. CBC and CMP is unremarkable. Believe the swelling is probably secondary to revascularization and may be some restriction within the venous system. Recommended elevation and the use of compression stockings or socks to help with the discomfort and the swelling. Recommended following up with surgeon for further investigation. Patient and family both reported understanding. Lab Data 10/29/23 20:56 10/29/23 20:56 Radiology Impressions Venous Duplex 10/29/23 20:46 IMPRESSION: No evidence of deep vein thrombosis. Laboratory Results WBC 7.44 10^3/uL (3.29-11.43) 10/29/23 20:56 RBC 4.16 10^6/uL (3.85-5.65) 10/29/23 20:56 Hgb 12.80 g/dL (11.27-16.99) 10/29/23 20:56 Hct 37.3 % (36-47) 10/29/23 20:56 MCV 89.7 fl (85-98) 10/29/23 20:56 MCH 30.8 pg (27-33) 10/29/23 20:56 MCHC 34.3 g/dL (30-55) 10/29/23 20:56 RDW 12.4 % (12.1-15.1) 10/29/23 20:56 Plt Count 259 10^3/cmm (157-399) 10/29/23 20:56 MPV 8.9 fL (7.4-10.4) 10/29/23 20:56 Neut % (Auto) 63.2 % 10/29/23 20:56 Lymph % (Auto) 20.8 % 10/29/23 20:56 Rock % (Auto) 8.2 % 10/29/23 20:56 Eos % (Auto) 6.3 % 10/29/23 20:56 Baso % (Auto) 1.1 % 10/29/23 20:56 Neut # (Auto) 4.70 10^3/uL (1.8-7.7) 10/29/23 20:56 Lymph # (Auto) 1.6 10^3/uL (0.8-4.8) 10/29/23 20:56 Rock # (Auto) 0.6 10^3/uL (0.2-0.9) 10/29/23 20:56 Eos # (Auto) 0.5 10^3/uL (0.0-0.8) 10/29/23 20:56 Baso # (Auto) 0.1 10^3/uL (0.0-0.1) 10/29/23 20:56 Nucleated RBC % (auto) 0 % 10/29/23 20:56 Nucleated RBCs # 0.0 /100WBC 10/29/23 20:56 Sodium 136 mmol/L (136-145) 10/29/23 20:56 Potassium 4.0 mmol/L (3.5-5.1) 10/29/23 20:56 Chloride 102 mmol/L (98-107) 10/29/23 20:56 Carbon Dioxide 25 mmol/L (22-29) 10/29/23 20:56 Anion Gap 13.0 (5-19) 10/29/23 20:56 BUN 7 mg/dL (8-23) L 10/29/23 20:56 Creatinine 0.7 mg/dL (0.5-0.9) 10/29/23 20:56 GFR Calculation Not Reportable 10/29/23 20:56 Glucose 107 mg/dL (65-115) 10/29/23 20:56 Calculated Osmolality 280 mOsm/kg (285-295) L 10/29/23 20:56 Calcium 8.9 mg/dL (8.5-10.5) 10/29/23 20:56 All radiology interpretation(s) finalized by discharge Discharge Plan Discharge Patient Disposition: Home Clinical Impression: Dependent edema Condition: Stable Prescriptions: No Action mupirocin 2 % ointment 1 applic topical TID 10 Days Qty: 15 0RF sulfamethoxazole-trimethoprim [Bactrim DS] 800-160 mg tablet 1 tab PO BID 7 Days Qty: 14 0RF amlodipine 5 mg tablet 5 mg PO DAILY Qty: 90 3RF escitalopram oxalate [Lexapro] 20 mg tablet 20 mg PO DAILY Qty: 30 12RF alprazolam 0.25 mg tablet 0.25 mg PO BID PRN (Reason: anxiety) Qty: 60 3RF albuterol sulfate [ProAir HFA] 90 mcg/actuation HFA aerosol inhaler 2 puff inhalation Q4H PRN (Reason: Shortness Of Breath) Qty: 8.5 1RF trazodone 100 mg tablet 100 mg PO BEDTIME Qty: 30 11RF Discharge Orders: Discharge ED (Routine); Ordered 10/29/23 Ordered By: Omar New Referrals: Phillip Zeng MD [Primary Care Provider] - Discharge Diet: Usual diet Discharge Activity: Increase activity as tolerated Patient Instructions: Edema (ED) Activity Restrictions/Additional Instructions: Try to elevate leg is much as possible. Activity as tolerated. Consider use of compression socks or stockings to help with the swelling. Discussed with your cardiovascular surgeon other options to help with the swelling. Return to ER for discoloration of the extremity, feeling of coldness to touch, or severe uncontrolled pain. Coding Level of Care Code ED Rehab Office Coordinator for Bruce Montaño
[2023-10-29 20:43] VITALS: BP 165/88; PULSE 65; RESP 16; O2SAT 98
--- NOTE | 2023-10-29 20:46 | USR_ITS ---
PROCEDURE INFORMATION: Exam: US Duplex Right Lower Extremity Veins, Limited Exam date and time: 10/29/2023 9:22 PM Age: 78 years old Clinical indication: Other: Bruising right groin S/P cardiac cath 4 days ago. Prior surgery; Surgery date: 3-7 days post-operative; Additional info: Possible dvt TECHNIQUE: Imaging protocol: Real-time duplex ultrasound of the right extremity with 2-D mejia scale, color Doppler flow and spectral waveform analysis including responses to compression and other maneuvers (when performed) with image documentation. Limited exam was focused on the right lower extremity veins. COMPARISON: CT kidney stone [id number] 10/27/2022 12:13 PM FINDINGS: Right deep veins: Unremarkable. The common femoral, femoral, proximal profunda femoral and popliteal veins, posterior tibial and peroneal veins are patent without thrombus. Normal Doppler waveforms. Normal compressibility and/or augmentation response. Superficial veins: Greater saphenous vein at the saphenofemoral junction is patent without thrombus. Soft tissues: Unremarkable. US/[place] [id number] IMPRESSION: No evidence of deep vein thrombosis.
[2023-10-29 21:13] LABS: Basophils # 0.1 10^3/uL (0.0-0.1); Basophils % 1.1 %; Eosinophils # 0.5 10^3/uL (0.0-0.8); Eosinophils % 6.3 %; Hematocrit 37.3 % (36-47); Lymphocytes # 1.6 10^3/uL (0.8-4.8); Lymphocytes % 20.8 %; Mean Corpuscular HGB Conc 34.3 g/dL (30-55); Mean Corpuscular Hemoglobin 30.8 pg (27-33); Mean Corpuscular Volume 89.7 fl (85-98); Mean Platelet Volume 8.9 fL (7.4-10.4); Monocytes # 0.6 10^3/uL (0.2-0.9); Monocytes % 8.2 %; Neutrophils % 63.2 %; Nucleated Red Blood Cells % 0 %; Platelet Count 259 10^3/cmm (157-399); Red Blood Count 4.16 10^6/uL (3.85-5.65); Red Cell Distribution Width 12.4 % (12.1-15.1); White Blood Count 7.44 10^3/uL (3.29-11.43)
[2023-10-29 21:33] LABS: Blood Urea Nitrogen 7 mg/dL (8-23); Calcium 8.9 mg/dL (8.5-10.5); Carbon Dioxide 25 mmol/L (22-29); Chloride 102 mmol/L (98-107); Creatinine Clr Calc Pharmacy 38.1535; Glucose 107 mg/dL (65-115); Osmolality Calculated 280 mOsm/kg (285-295); Sodium 136 mmol/L (136-145)
[2023-10-29 22:27] VITALS: BP 151/82; PULSE 63; RESP 16; O2SAT 98
== END 2023-10-29 23:05 | disposition home or self-care (01) ==
PROVIDERS: Emergency Provider Nurse Practitioner Family; PCP Family Medicine
DX: R60.0 Localized edema (principal); J44.9 Chronic obstructive pulmonary disease, unspecified; I10 Essential (primary) hypertension; E78.5 Hyperlipidemia, unspecified; Z95.0 Presence of cardiac pacemaker
CPT/HCPCS: 80048; 85025; 93971; 99284

== ENCOUNTER 2023-12-16 12:11 | Outpatient (CLI) | payer MEDICARE, OTHER, SELFPAY ==
--- NOTE | 2023-12-16 12:30 | USCV_ITS ---
Lucinda Aguila Age: 78 Gender: F : 1945 Exam Date: 12/16/2023 12:27 Ordering Phys: Juan Manuel Lawler NP Technologist: ROCIO Exam Location: [facility] [place] Indication: RLE SWELLING [id number] HISTORY: Lower extremity swelling. PROCEDURES: Venous duplex imaging was performed in only the right lower extremity. The following venous structures were evaluated: common femoral vein, profunda vein, proximal portion of the greater saphenous vein, superficial femoral vein, and the popliteal vein. In addition, the posterior tibial and peroneal trunk were evaluated. Serial compression, augmentation maneuvers, and spectral Doppler flow evaluation were performed. FINDINGS: No evidence of DVT seen in any vessel visualized at this time. CONCLUSIONS No evidence of right lower extremity DVT. Kang Reveles MD (Electronically Signed) Final Date: 16 December 2023 13:11 S
== END 2023-12-16 12:12 | disposition home or self-care (01) ==
LOC: RAD 12:11
PROVIDERS: PCP Family Medicine; Visit Provider Clinical Nurse Specialist Adult Health
DX: R60.0 Localized edema (principal)
CPT/HCPCS: 93971

== ENCOUNTER 2024-01-26 07:53 | Outpatient (CLI) | payer MEDICARE, OTHER, SELFPAY ==
--- NOTE | 2024-01-26 08:00 | CT_ITS ---
WS: [id number] CT ANGIOGRAPHY ABDOMEN HISTORY: f/u on AAA TECHNIQUE: CT angiogram is performed during IV injection. Reformation images reviewed. All CT scans a [facility] use at least one of these dose optimization techniques: automated exposure contro l; mA and/or kV adjustment per patient size (includes targeted exams where dose is matched to clinica l indication); or iterative reconstruction. CONTRAST: Omnipaque 350; 100 mL IV. DLP: 602.30 mGy.cm COMPARISON: 10/27/2022 Hyperexpanded lung bases and chronic emphysema. Normal size liver. Numerous gallstones without a acut e cholecystitis. Pancreatic atrophy. Slight pancreatic and common bile duct dilatation but no mass id entified. Abdominal aorta: Ectatic abdominal aortic aneurysm. Aneurysm and atherosclerotic plaque again in the lower thoracic aorta. There is plaque extending into the lumen of the distal thoracic aorta. Infraren al aortic aneurysm with a maximum transverse diameter of 4.3 cm. There is circumferential thrombus yang rrounding the patent opacified lumen. Aneurysm tapers to the bifurcation. Bilateral arterial stent gr afts are noted beginning at the aortic bifurcation extending into the common iliac arteries. Iliac ar terial stent grafts appear patent. Celiac axis is patent. Mild stenosis involving the proximal SMA. No renal calcifications or obstruction. During arterial phase imaging there is decreased enhancement of the LEFT renal cortex as compared to the RIGHT. The decreased enhancement is diffuse suggesting th is is probably related to the renal artery stenosis proximally. A stenosis is noted proximally in the LEFT renal artery which is estimated at just greater than 50%. Well-circumscribed low-attenuation ma ss is reidentified in the upper pole the LEFT kidney. This is continued to slowly increase in size ov er the last several years. There is enhancement as a Hounsfield units increased from 6 on the noncont rast study to 22 on the postcontrast study. This mass measures 2.1 cm in maximum diameter and is susp icious for possible neoplasm due to the enhancement parameters. There is an additional cyst from the lower pole that does not enhance with a maximum diameter of 1.1 cm. There are a few additional cortic al hypodensities which are too small to characterize within each kidney. No GI tract obstruction. Marked thinning of the abdominal wall musculature. No ascites. Bones are markedly osteopenic. Partial fusion RIGHT SI joint. CT/CT angio abdomen [id number] IMPRESSION: 1. Progression in size of the known infrarenal abdominal aortic aneurysm with a maximum diameter of 4.3 cm which is increased from 3.0 cm on 01/29/2019. Incre ase in the amount of intraluminal thrombus, ectasia and dilatation. 2. Bilateral common iliac artery stents are patent. 3. Delayed enhancement of the LEFT kidney as compared to the RIGHT suggest the proximal LEFT renal artery stenosis is approaching at least 60%. 4. Low-attenuation mass superior pole LEFT kidney demonstrates enhancement on the postcontrast exams. This was thought to be a cyst on prior studies due to i ts low attenuation. The enhancement pattern suggests this could be a renal cell neoplasm now measuring 2.1 cm. There are additional cysts and too small to jessica racterize hypodensities in the LEFT kidney.
--- NOTE | 2024-01-26 08:13 | CT_ITS ---
WS: [id number] CT LUMBAR SPINE, noncontrast. HISTORY: LOW BACK PAIN TECHNIQUE: Contiguous 2.0 mm axial imaging are performed. Sagittal and coronal reformats are submitte d and reviewed. All CT scans [facility] use at least one of these dose optimization techni ques: automated exposure control; mA and/or kV adjustment per patient size (includes targeted exams w here dose is matched to clinical indication); or iterative reconstruction. IV contrast: None DLP: 602.30 mGy.cm COMPARISON: 01/03/2017 Moderate progression of the LEFT lumbar rotary scoliosis and degenerative disc disease since 7. Progression of scoliosis and disc space narrowing and desiccation and chronic endplate changes. Fa cet joints are narrowed and sclerotic. No fractures. L1-2: Mild annular disc bulging. New moderate size RIGHT subarticular recess disc protrusion which is most likely contacting the traversing RIGHT L2 nerve root. Disc protrusion extends lateral into the foramen. RIGHT subarticular recess and mild foraminal stenosis. L2-3: Diffuse asymmetric disc bulging, disc bulging greatest to the RIGHT. Mild RIGHT foraminal disc protrusion and facet arthritis. L3-4: Progression of scoliosis. Facet osteophytosis and vertebral osteophytosis and disc disease defo rming the thecal sac moderate central and bilateral foraminal stenosis. L4-5: Broad-based central disc protrusion with mild central stenosis and encroachment upon the jaycob sing L5 nerve roots. Facet disease and mild foraminal stenosis. L5-S1: Broad-based disc bulging with mild effacement of the thecal sac. Mild disc contact on the S1 n erve roots has progressed since the prior study. Mild central and LEFT foraminal stenosis. Cholelithiasis. Numerous gallstones are noted. Increasing size of the abdominal aortic aneurysm. The aneurysm is tortuous and multi lobular. Arterial stent grafts are noted in the common iliac arteries beginning at the bifurcation. CT/CT lumbar spine wo con* [id number] IMPRESSION: 1. Moderate progression of rotary scoliosis, convex to the LEFT since 7. 2. Progression of disc space narrowing, desiccation, facet disease and stenose s. 3. L1-2: New moderate-sized RIGHT subarticular recess disc protrusion contacti ng the traversing RIGHT L2 nerve root. RIGHT subarticular recess and mild RIGHT foraminal stenosis. 4. L3-4: Moderate central and bilateral foraminal stenosis due to progression of the scoliosis and osteophytosis. 5. L4-5: Mild central stenosis encroaching upon the traversing L5 nerve roots. Mild foraminal stenosis. 6. L5-S1: Mild central and LEFT foraminal stenosis. There is disc contact on t he S1 nerve roots. 7. Progression of bilobed abdominal aortic aneurysm. CTA abdomen is being perf ormed on the same date. Please refer to that report for further details. 8. Cholelithiasis.
[2024-01-26 09:02] LABS: Blood Urea Nitrogen 8 mg/dL (8-23)
[2024-01-26] MEDS: iohexol 350 mg/mL 500 mL Btl (per mL) IV (09:51)
== END 2024-01-26 07:54 | disposition home or self-care (01) ==
LOC: RAD 07:53
PROVIDERS: PCP Family Medicine; Visit Provider Family Medicine
DX: I71.40 Abdominal aortic aneurysm, without rupture, unspecified (principal); M41.86 Other forms of scoliosis, lumbar region; M51.26 Other intervertebral disc displacement, lumbar region; M25.78 Osteophyte, vertebrae; M99.63 Osseous and subluxation stenosis of intervertebral foramina of lumbar region; N28.1 Cyst of kidney, acquired; K80.20 Calculus of gallbladder without cholecystitis without obstruction; J43.9 Emphysema, unspecified; K86.89 Other specified diseases of pancreas; Z95.5 Presence of coronary angioplasty implant and graft
CPT/HCPCS: 72131; 74175; 82565; 84520; Q9967

== ENCOUNTER 2024-02-25 07:01 | Outpatient (CLI) | payer MEDICARE, OTHER, SELFPAY ==
--- NOTE | 2024-02-25 07:15 | US_ITS ---
WS: [id number] RENAL ULTRASOUND HISTORY: renal mass on CT COMPARISON: None available. TECHNIQUE: 2-D and color Doppler imaging of the kidney submitted. Right kidney: 8.9 cm x 4.5 cm x 4.0 cm. Cortex: 1.1 cm Normal echogenicity with no hydronephrosis or mass. Left kidney: 9.1 cm x 3.4 cm x 3.7 cm. Cortex: 1.0 cm No hydronephrosis. There is a cystic mass in the superior pole with low-level internal echoes measuri ng 2.3 x 2.3 x 2.3 cm. This corresponds to the complex cyst recently described. This is not a simple cyst. Aorta: Normal. Urinary Bladder: Nondistended. Cholelithiasis. US/US renal BI* [id number] IMPRESSION: 1. No renal obstruction. 2. Minimally complex cystic mass superior pole LEFT kidney measures 2.3 x 2.3 x 2.3 cm. This mass has been present on multiple prior exams dating back to 201 0. There is been slow progressive increase in size. Consider 6-month renal ultr asound follow-up to document continued stability.
== END 2024-02-25 07:02 | disposition home or self-care (01) ==
LOC: RAD 07:02
PROVIDERS: PCP Family Medicine; Visit Provider Family Medicine
DX: N28.1 Cyst of kidney, acquired (principal); N28.89 Other specified disorders of kidney and ureter
CPT/HCPCS: 76770

== ENCOUNTER → 2024-04-21 10:05 | Outpatient (BNVA) | payer MEDICARE, OTHER, SELFPAY | PROVIDERS: PCP Family Medicine; Visit Provider Family Medicine | DX: F32.A Depression, unspecified (principal); I10 Essential (primary) hypertension; I73.9 Peripheral vascular disease, unspecified; I71.40 Abdominal aortic aneurysm, without rupture, unspecified; E78.5 Hyperlipidemia, unspecified | CPT/HCPCS: 80053; 80061; 85025; 86140 ==

== ENCOUNTER → 2024-05-19 12:52 | Outpatient (BNVA) | payer MEDICARE, OTHER, SELFPAY | PROVIDERS: PCP Family Medicine; Visit Provider Family Medicine | DX: R30.0 Dysuria (principal); N39.0 Urinary tract infection, site not specified | CPT/HCPCS: 81000; 87086 ==

== ENCOUNTER 2024-06-05 07:18 | Emergency (ER) | payer MEDICARE, OTHER, SELFPAY ==
--- NOTE | 2024-06-05 07:33 | W.ED.FALL ---
HPI - Fall General: Chief Complaint: Fall Stated Complaint: fell 1 hour ago Time Seen by Provider: 06/05/24 07:24 History of Present Illness: 78-year-old female who presents to the emergency room after falling at home. She has had several falls in the past she had been standing for period of time get dizzy and had a ground-level fall. She did hit her head on the wall as she fell. There was no loss of consciousness she has chronic neck pain which is unchanged. She denies any other injuries at this time. She is accompanied by her daughters. She is quite adamant that she really does not need to be here she is only here because her daughters were EXTR 2. Associated symptoms-after fall: Denies abdominal pain, chest pain or neck pain Related Data Home Medications Medication Instructions Recorded Confirmed clopidogrel 75 mg tablet 75 mg PO DAILY 12/16/23 06/05/24 Previous Rx's Medication Instructions Recorded albuterol sulfate 90 mcg/actuation 2 puff inhalation Q4H PRN 12/30/23 aerosol inhaler Shortness Of Breath #8.5 grams alprazolam 0.25 mg tablet 0.25 mg PO BID PRN anxiety #60 tabs 01/06/24 trazodone 150 mg tablet 150 mg PO BEDTIME #30 tabs 01/20/24 tramadol 50 mg tablet 50 mg PO Q6H PRN pain #60 tabs 02/02/24 amlodipine 5 mg tablet 5 mg PO DAILY #90 tabs 04/21/24 escitalopram oxalate 20 mg tablet 20 mg PO DAILY #30 tabs 04/21/24 (Lexapro) Allergies Allergy/AdvReac Type Severity Reaction Status Date / Time lisinopril Allergy Unknown Unknown Verified 06/05/24 07:42 lovastatin Allergy Unknown Unknown Verified 06/05/24 07:42 meloxicam [From Mobic] Allergy Unknown Unknown Verified 06/05/24 07:42 Review of Systems Const: Denies: fever(s) or chills Card: Denies: chest pain Resp: Denies: dyspnea GI: Denies: abdominal pain : Denies: dysuria, urinary frequency or urinary urgency Musc: Denies: neck pain or back pain Skin/Breast: Denies: rash PFSH ED PFSH: Medical History Stenosis of right subclavian artery moderate Depression COPD (chronic obstructive pulmonary disease) Carotid stenosis Pulmonary HTN SSS (sick sinus syndrome) Tobacco abuse PVD (peripheral vascular disease) HTN (hypertension) Dyslipidemia Surgical History Status post placement of cardiac pacemaker S/P carotid endarterectomy Family History Father CAD (coronary artery disease) Brother CAD (coronary artery disease) Mother Cancer Social History Smoking and tobacco/nicotine status: unknown if used tobacco/nicotine Alcohol intake: never Substance/Drug Use: never Marital status: Physical Exam Const: COMMON NORMALS: no acute distress GENERAL APPEARANCE: cooperative and comfortable ORIENTATION/CONSCIOUSNESS: Yes awake, Yes oriented to person, Yes oriented to place and Yes oriented to time HENMT: COMMON NORMALS: normocephalic, atraumatic and hearing grossly normal bilaterally HEAD & SCALP: normocephalic and atraumatic Resp: COMMON NORMALS: normal respiratory effort, No retractions, No use of accessory muscles and clear to auscultation bilaterally AUSCULTATION: clear to auscultation bilaterally Cardio: COMMON NORMALS: regular rate, regular rhythm and No murmurs present (Cardio) RATE: regular rate RHYTHM: regular rhythm GI: COMMON NORMALS: Soft to palpation and No hepatosplenomegaly present AUSCULTATION: Yes normoactive bowel sounds PALPATION: Yes Soft to palpation, No Tenderness to palpation present (GI), No Guarding due to palpation present (GI) and Yes No hepatosplenomegaly present Extremity: COMMON NORMALS: normal to inspection, capillary refill normal, no clubbing, cyanosis or edema, no calf tenderness and no pedal edema Neuro: SENSORIUM/ORIENTATION: Yes oriented to person, Yes oriented to place and Yes oriented to time Skin: COMMON NORMALS: no rashes or lesions noted GENERAL SKIN EXAM: no rashes or lesions noted Course Vital Signs: Vital signs: Vital Signs Temperature 98.4 F 06/05/24 07:34 Pulse Rate 81 06/05/24 09:32 Respiratory Rate 20 H 06/05/24 07:34 Blood Pressure 148/75 06/05/24 09:32 Pulse Oximetry 96 06/05/24 09:32 Oxygen Delivery Me thod Room Air 06/05/24 09:14 MDM - Fall Medical Decision Making Patient anxious to go home we do were able to convince her to stay till we get the CT report back CT head and neck was unremarkable she denies any other injury laboratory work did not show any clinically significant abnormality will discharge patient home continue same medications. Medical Records I reviewed the patient's medical records. Lab Data I reviewed the patient's lab results. 06/05/24 07:41 06/05/24 07:41 Radiology Impressions Cervical Spine CT 06/05/24 07:46 IMPRESSION: No acute findings. Head CT 06/05/24 07:46 IMPRESSION: No acute intracranial abnormality. Laboratory Results WBC 8.57 10^3/uL (3.29-11.43) 06/05/24 07:41 RBC 4.75 10^6/uL (3.85-5.65) 06/05/24 07:41 Hgb 14.10 g/dL (11.27-16.99) 06/05/24 07:41 Hct 43.0 % (36-47) 06/05/24 07:41 MCV 90.5 fl (85-98) 06/05/24 07:41 MCH 29.7 pg (27-33) 06/05/24 07:41 MCHC 32.8 g/dL (30-55) 06/05/24 07:41 RDW 12.1 % (12.1-15.1) 06/05/24 07:41 Plt Count 186 10^3/cmm (157-399) 06/05/24 07:41 MPV 8.8 fL (7.4-10.4) 06/05/24 07:41 Neut % (Auto) 81.8 % 06/05/24 07:41 Lymph % (Auto) 9.5 % 06/05/24 07:41 [place] % (Auto) 5.5 % 06/05/24 07:41 Eos % (Auto) 2.2 % 06/05/24 07:41 Baso % (Auto) 0.6 % 06/05/24 07:41 Neut # (Auto) 7.02 10^3/uL (1.8-7.7) 06/05/24 07:41 Lymph # (Auto) 0.8 10^3/uL (0.8-4.8) 06/05/24 07:41 [place] # (Auto) 0.5 10^3/uL (0.2-0.9) 06/05/24 07:41 Eos # (Auto) 0.2 10^3/uL (0.0-0.8) 06/05/24 07:41 Baso # (Auto) 0.1 10^3/uL (0.0-0.1) 06/05/24 07:41 Nucleated RBC % (auto) 0 % 06/05/24 07:41 Nucleated RBCs # 0.0 /100WBC 06/05/24 07:41 Sodium 133 mmol/L (136-145) L 06/05/24 07:41 Potassium 4.0 mmol/L (3.5-5.1) 06/05/24 07:41 Chloride 96 mmol/L (98-107) L 06/05/24 07:41 Carbon Dioxide 24 mmol/L (22-29) 06/05/24 07:41 Anion Gap 17.0 (5-19) 06/05/24 07:41 BUN 8 mg/dL (8-23) 06/05/24 07:41 Creatinine 1.0 mg/dL (0.5-0.9) H 06/05/24 07:41 GFR Calculation Not Reportable 06/05/24 07:41 Glucose 185 mg/dL (65-115) H 06/05/24 07:41 Calculated Osmolality 279 mOsm/kg (285-295) L 06/05/24 07:41 Calcium 9.0 mg/dL (8.5-10.5) 06/05/24 07:41 Total Bilirubin 0.2 mg/dL (0.15-1.2) 06/05/24 07:41 AST 16 U/L (0-32) 06/05/24 07:41 ALT 6 U/L (0-33) 06/05/24 07:41 Alkaline Phosphatase 87 U/L (35-105) 06/05/24 07:41 Total Protein 6.3 g/dL (6.6-8.7) L 06/05/24 07:41 Albumin 3.6 g/dL (3.5-5.2) 06/05/24 07:41 Globulin 2.7 g/dL (1.3-4.6) 06/05/24 07:41 All radiology interpretation(s) finalized by discharge Discharge Plan Discharge Patient Disposition: Home Clinical Impression: Fall, CHI (closed head injury) Condition: Stable Prescriptions: No Action trazodone 150 mg tablet 150 mg PO BEDTIME Qty: 30 11RF amlodipine 5 mg tablet 5 mg PO DAILY Qty: 90 3RF escitalopram oxalate [Lexapro] 20 mg tablet 20 mg PO DAILY Qty: 30 12RF clopidogrel 75 mg tablet 75 mg PO DAILY tramadol 50 mg tablet 50 mg PO Q6H PRN (Reason: pain) Qty: 60 5RF albuterol sulfate 90 mcg/actuation HFA aerosol inhaler 2 puff inhalation Q4H PRN (Reason: Shortness Of Breath) Qty: 8.5 11RF Rx Instructions: may substitute alprazolam 0.25 mg tablet 0.25 mg PO BID PRN (Reason: anxiety) Qty: 60 3RF Discharge Orders: Discharge ED (Routine); Ordered 06/05/24 Ordered By: Augusto Rudd Referrals: Phillip Zeng MD [Primary Care Provider] - Discharge Diet: Usual diet Discharge Activity: Increase activity as tolerated Patient Instructions: Opioid Safety, Pain Management Activity Restrictions/Additional Instructions: Thank you for choosing [facility] for your healthcare needs today. It is very important that you follow up as instructed or that you return to the Emergency Department should you have concerns or if your condition changes or worsens in any way. You were seen in the emergency room after a fall CT of your head and neck were negative basic labs were also done and did not show any clinically significant abnormalities. Will discharge you home follow-up with your primary care doctor. Coding Level of Care Code ED Rn Intensive Care Unit for Bruce Montaño
[2024-06-05 07:34] VITALS: BP 155/82; PULSE 77; RESP 20; TEMP 36.9; O2SAT 96; BMI 17.5
--- NOTE | 2024-06-05 07:43 | PC.NURSE ---
pt had episode of stool incontinence, provided wipes; pt changed into gown.
[2024-06-05 07:44] VITALS: BP 155/82; O2SAT 95
--- NOTE | 2024-06-05 07:46 | CTR_ITS ---
PROCEDURE INFORMATION: Exam: CT Cervical Spine Without Contrast Exam date and time: 06/05/2024 7:55 AM Age: 78 years old Clinical indication: Injury or trauma; Fall; Blunt trauma TECHNIQUE: Imaging protocol: Computed tomography of the cervical spine without contrast. Radiation optimization: All CT scans at this facility use at least one of these dose optimization techniques: automated exposure control; mA and/or kV adjustment per patient size (includes targeted exams where dose is matched to clinical indication); or iterative reconstruction. COMPARISON: CT angio headneck* [id number] 10/01/2022 2:46 PM RADIATION DOSE METRICS: Total DLP (mGy-cm): 1063.7 FINDINGS: Bones: No acute fracture. Normal alignment. No significant disc bulge or herniation. No severe spinal canal stenosis. No significant neural foraminal narrowing. Lungs: Lung apices are normal. Soft tissues: Unremarkable. CT/CT cervical spin wo con* [id number] IMPRESSION: No acute findings.
--- NOTE | 2024-06-05 07:46 | CTR_ITS ---
PROCEDURE INFORMATION: Exam: CT Head Without Contrast Exam date and time: 06/05/2024 7:55 AM Age: 78 years old Clinical indication: Injury or trauma; Fall; Blunt trauma (contusions or hematomas) TECHNIQUE: Imaging protocol: Computed tomography of the head without contrast. Radiation optimization: All CT scans at this facility use at least one of these dose optimization techniques: automated exposure control; mA and/or kV adjustment per patient size (includes targeted exams where dose is matched to clinical indication); or iterative reconstruction. COMPARISON: CT head wo con* [id number] 10/27/2022 10:49 AM RADIATION DOSE METRICS: Total DLP (mGy-cm): 1110.9 FINDINGS: Brain: Periventricular white matter lucency represents atherosclerotic encephalopathic changes. Bilateral basal ganglia lacunar infarcts. Bilateral basal ganglia calcifications. Cerebral ventricles: No ventriculomegaly. Ventricular prominence disproportionate to the degree of atrophy observed. Paranasal sinuses: Visualized sinuses are unremarkable. No fluid levels. Mastoid air cells: Visualized mastoid air cells are well aerated. Bones: Unremarkable. No acute fracture. Soft tissues: Unremarkable. Other findings: . No hemorrhage. No mass effect. CT/CT head wo con* [id number] IMPRESSION: No acute intracranial abnormality.
[2024-06-05 07:51] LABS: Basophils # 0.1 10^3/uL (0.0-0.1); Basophils % 0.6 %; Eosinophils # 0.2 10^3/uL (0.0-0.8); Eosinophils % 2.2 %; Lymphocytes # 0.8 10^3/uL (0.8-4.8); Lymphocytes % 9.5 %; Mean Corpuscular HGB Conc 32.8 g/dL (30-55); Mean Corpuscular Hemoglobin 29.7 pg (27-33); Mean Corpuscular Volume 90.5 fl (85-98); Mean Platelet Volume 8.8 fL (7.4-10.4); Monocytes # 0.5 10^3/uL (0.2-0.9); Monocytes % 5.5 %; Neutrophils # 7.02 10^3/uL (1.8-7.7); Neutrophils % 81.8 %; Nucleated Red Blood Cells % 0 %; Platelet Count 186 10^3/cmm (157-399); Red Blood Count 4.75 10^6/uL (3.85-5.65); Red Cell Distribution Width 12.1 % (12.1-15.1); White Blood Count 8.57 10^3/uL (3.29-11.43)
[2024-06-05 08:10] LABS: Alanine Aminotransferase 6 U/L (0-33); Albumin Level 3.6 g/dL (3.5-5.2); Alkaline Phosphatase 87 U/L (35-105); Aspartate Amino Transferase 16 U/L (0-32); Blood Urea Nitrogen 8 mg/dL (8-23); Carbon Dioxide 24 mmol/L (22-29); Chloride 96 mmol/L (98-107); Creatinine Clr Calc Pharmacy 33.6303; Globulin 2.7 g/dL (1.3-4.6); Glucose 185 mg/dL (65-115); Osmolality Calculated 279 mOsm/kg (285-295); Sodium 133 mmol/L (136-145); Total Bilirubin 0.2 mg/dL (0.15-1.2); Total Protein 6.3 g/dL (6.6-8.7)
[2024-06-05 09:14] VITALS: O2SAT 95
[2024-06-05 09:32] VITALS: BP 148/75; PULSE 81; O2SAT 96
== END 2024-06-05 09:33 | disposition home or self-care (01) ==
PROVIDERS: Emergency Provider Family Medicine; PCP Family Medicine
DX: S09.8XXA Other specified injuries of head, initial encounter (principal); W19.XXXA Unspecified fall, initial encounter; Z79.02 Long term (current) use of antithrombotics/antiplatelets; J44.9 Chronic obstructive pulmonary disease, unspecified; I10 Essential (primary) hypertension; E78.5 Hyperlipidemia, unspecified
CPT/HCPCS: 70450; 72125; 80053; 85025; 99284

== ENCOUNTER → 2024-07-02 10:04 | Outpatient (BNVA) | payer MEDICARE, OTHER, SELFPAY | PROVIDERS: PCP Family Medicine; Visit Provider Nurse Practitioner Family | DX: R52 Pain, unspecified (principal) | CPT/HCPCS: 73130 ==

== ENCOUNTER → 2024-07-17 12:23 | Outpatient (BNVA) | payer MEDICARE, OTHER, SELFPAY | PROVIDERS: PCP Family Medicine | DX: R30.0 Dysuria (principal) | CPT/HCPCS: 81000 ==

== ENCOUNTER → 2024-07-19 16:02 | Outpatient (BNVA) | payer MEDICARE, OTHER, SELFPAY | PROVIDERS: PCP Family Medicine; Visit Provider Family Medicine | DX: N28.89 Other specified disorders of kidney and ureter (principal) | CPT/HCPCS: 87086 ==

== ENCOUNTER → 2024-10-12 10:48 | Outpatient (BNVA) | payer MEDICARE, OTHER, SELFPAY | PROVIDERS: PCP Family Medicine; Visit Provider Family Medicine | DX: N28.89 Other specified disorders of kidney and ureter (principal); N39.0 Urinary tract infection, site not specified | CPT/HCPCS: 81000; 87077; 87086; 87184 ==

== ENCOUNTER → 2024-11-08 13:11 | Outpatient (BNVA) | payer MEDICARE, OTHER, SELFPAY | PROVIDERS: PCP Family Medicine; Visit Provider Family Medicine | DX: N28.89 Other specified disorders of kidney and ureter (principal); R55 Syncope and collapse; E78.5 Hyperlipidemia, unspecified | CPT/HCPCS: 80053; 84443; 85025; 86140 ==

== ENCOUNTER 2024-11-17 13:20 | Outpatient (CLI) | payer MEDICARE, OTHER, SELFPAY ==
--- NOTE | 2024-11-17 13:30 | US_ITS ---
WS: [id number] RENAL ULTRASOUND HISTORY: fu on renal mass COMPARISON: 02/25/2024 TECHNIQUE: 2-D and color Doppler imaging of the kidney submitted. Right kidney: 9.0 cm x 3.8 cm x 3.7 cm. Cortex: 0.9 cm Normal echogenicity with no hydronephrosis or mass. Left kidney: 8.3 cm x 3.4 cm x 3.3 cm. Cortex: 1.1 cm Low normal size kidney. Mildly complex cyst lower pole measures 1.2 x 2.4 x 1.5 cm. Additional complex cyst superior pole measures 1.8 x 1.3 x 1.9 cm. Neither mass has increased significantly in size since 02/25/2024. Mass from the superior pole of the LEFT kidney noted to enhance on a prior CTA. There has been no increase in size. Aorta: Marked atherosclerotic disease. Intraluminal thrombus with wall thickening. Infrarenal abdominal aortic aneurysm measures 4.7 cm at its maximum. Mild progression in diameter of 4.3 cm on 01/26/2024. Urinary Bladder: Normal distention. Cholelithiasis. US/US renal BI* [id number] IMPRESSION: 1. LEFT renal upper and lower pole cysts. These are predominantly cystic tushar s. The upper pole cystic mass slightly enhanced on the prior CTA. There has bee n no increase in size since 01/26/2024. 2. Slight increase in size of the abdominal aortic aneurysm from 4.3 to 4.7 cm as described on 01/26/2024. 3. Cholelithiasis.
== END 2024-11-17 13:21 | disposition home or self-care (01) ==
PROVIDERS: PCP Family Medicine; Visit Provider Family Medicine
DX: N28.1 Cyst of kidney, acquired (principal); N28.89 Other specified disorders of kidney and ureter; N39.0 Urinary tract infection, site not specified; I71.40 Abdominal aortic aneurysm, without rupture, unspecified; K80.20 Calculus of gallbladder without cholecystitis without obstruction
CPT/HCPCS: 76770; 81000; 87086

== ENCOUNTER → 2024-12-23 08:46 | Outpatient (BNVA) | payer MEDICARE, OTHER, SELFPAY | PROVIDERS: PCP Family Medicine; Visit Provider Internal Medicine | DX: Z45.018 Encounter for adjustment and management of other part of cardiac pacemaker (principal) | CPT/HCPCS: 93296 ==